=== PATIENT | male | born 1985 | race Caucasian/White ===

== ENCOUNTER 2017-08-24 09:38 | Emergency (ER) | payer SELFPAY ==
[2017-08-24] MEDS ORDERED: LIDOCAINE 1% 20 ML MDV ONE (12:12)
--- NOTE | 2017-08-24 12:51 | EDPHYS ---
Physician Documentation [facility] Name: Dima Moses Age: 31 yrs Sex: Male : 1985 Arrival Date: 08/24/2017 Time: 09:41 Bed 25 Private MD: None, None ED Physician Arun Lua HPI: 08/24 12:58 This 31 yrs old Male presents to ER via Ambulatory with complaints of jr8 Laceration To Hand. 12:58 The patient has a laceration related to: falling occurred outdoors. Onset: The jr8 symptoms/episode began/occurred acutely, yesterday. Associated signs and symptoms: The patient has no apparent associated signs or symptoms. The patient has not experienced similar symptoms in the past. The patient has not recently seen a physician. [place]. Laceration to hand. Came in today for examination . Historical: - Allergies: 10:03 No Known Allergies; aj - Home Meds: 10:03 Nexium Oral [Active]; aj - PMHx: 10:03 None; aj - PSHx: 10:03 None; aj - Immunization history:: Last tetanus immunization: up to date. - Social history:: Smoking status: Patient/guardian denies using tobacco. - Ebola Screening: : No symptoms or risks identified at this time. ROS: 17:28 Eyes: Negative for injury, pain, redness, and discharge, ENT: Negative for injury, jr8 pain, and discharge, Neck: Negative for injury, pain, and swelling, Cardiovascular: Negative for chest pain, palpitations, and edema, Respiratory: Negative for shortness of breath, cough, wheezing, and pleuritic chest pain, Abdomen/GI: Negative for abdominal pain, nausea, vomiting, diarrhea, and constipation, Back: Negative for injury and pain, Neuro: Negative for headache, weakness, numbness, tingling, and seizure. 17:28 MS/extremity: Positive for laceration, of the right hand. Exam: 17:28 Cardiovascular: Regular rate and rhythm with a normal S1 and S2. No gallops, murmurs, jr8 or rubs. Normal PMI, no JVD. No pulse deficits. Respiratory: Lungs have equal breath sounds bilaterally, clear to auscultation and percussion. No rales, rhonchi or wheezes noted. No increased work of breathing, no retractions or nasal flaring. MS/ Extremity: Pulses equal, no cyanosis. Neurovascular intact. Full, normal range of motion. Neuro: Awake and alert, GCS 15, oriented to person, place, time, and situation. Cranial nerves II-XII grossly intact. Motor strength 5/5 in all extremities. Sensory grossly intact. Cerebellar exam normal. Normal gait. 17:28 Skin: injury, laceration(s), the wound is approximately 8 cm(s), with a depth of .3 cm(s), of the right hand, that can be described as no foreign body, irregular, with mild bleeding. Vital Signs: 10:03 BP 140 / 95; Pulse 99; Resp 16; Temp 98.5; Pulse Ox 97% on R/A; Weight 84.37 kg; Height aj 5 ft. 11 in. (180.34 cm); 10:03 Body Mass Index 25.94 (84.37 kg, 180.34 cm) aj Laceration: 12:48 Wound Repair of 8cm ( 3.1in ) subcutaneous laceration to heel of right hand. jr8 Irregularly shaped.. Minimal bleeding noted.. Distal neuro/vascular/tendon intact. Anesthesia: Local anesthetic administered with 8 mls of 1% lidocaine. Wound prep: Extensive cleansing with betadine, Wound irrigation with saline, Wound explored extensively. Skin closed with 12 3-0 Prolene using interrupted sutures and sterile technique. Patient tolerated well. MDM: 11:38 Patient medically screened. jr8 12:48 Data reviewed: vital signs, nurses notes, and as a result, I will discharge patient. jr8 Data interpreted: Pulse oximetry: on room air is 97 %. Interpretation: normal. Counseling: I had a detailed discussion with the patient and/or guardian regarding: the historical points, exam findings, and any diagnostic results supporting the discharge/admit diagnosis, the need for outpatient follow up, a family practitioner, to return to the emergency department if symptoms worsen or persist or if there are any questions or concerns that arise at home. 08/24 11:54 Order name: Dressing - Wound; Complete Time: 13:08 jr8 08/24 11:54 Order name: Gloves, Sterile; Complete Time: 12:28 jr8 08/24 11:54 Order name: Setup Suture Tray; Complete Time: 12:28 jr8 Administered Medications: 12:40 Drug: Lidocaine (1 %) 1 vials {Note: administered by PA to right hand for laceration aa5 repair .} Volume: 20 ml; Route: Infiltration; Disposition: 16:52 Co-signature as Attending Physician, Arun Lua MD I agree with the assessment and kdr plan of care. Disposition: 08/24/17 12:50 Discharged to Home. Impression: Laceration without foreign body of right hand. - Condition is Stable. - Discharge Instructions: Laceration Care, Adult. - Prescriptions for Cipro 500 mg Oral Tablet - take 1 tablet by ORAL route every 12 hours for 10 days; 20 tablet. - Work release form, Medication Reconciliation Form, Thank You Letter, Antibiotic Education, Prescription Opioid Use form. - Follow up: Private Physician; When: 7 - 10 days; Reason: Wound Recheck, Recheck today's complaints, Continuance of care, Staple/Suture removal, Re-evaluation by your physician. - Problem is new. - Symptoms have improved. Signatures: Irma Hernandez RN RN aj Rittger, Kevin, MD MD [facility] Dina Dodge RN RN aa5 Kit Mccormack PA PA jr8 Corrections: (The following items were deleted from the chart) 13:16 12:50 08/24/2017 12:50 Discharged to Home. Impression: Laceration without foreign body aa5 of right hand. Condition is Stable. Forms are Medication Reconciliation Form, Thank You Letter, Antibiotic Education, Prescription Opioid Use. Follow up: Private Physician; When: 7 - 10 days; Reason: Wound Recheck, Recheck today's complaints, Continuance of care, Staple/Suture removal, Re-evaluation by your physician. Problem is new. Symptoms have improved. jr8
--- NOTE | 2017-08-24 12:51 | ER ---
Nurse's Notes [facility] Name: Dima Moses Age: 31 yrs Sex: Male : 1985 Arrival Date: 08/24/2017 Time: 09:41 Bed 25 Private MD: None, None Diagnosis: Laceration without foreign body of right hand Presentation: 08/24 10:01 Presenting complaint: Patient states: Laceration to palm of right hand last night while aj fishing. Patient reports cutting himself on rocks. Transition of care: patient was not received from another setting of care. Complicating Factors: There are no complicating factors for this patient. Onset of symptoms was August 24, 2017 at 01:00. Care prior to arrival: None. 10:01 Method Of Arrival: Ambulatory aj 10:01 Acuity: CAE 3 aj 12:00 Risk Assessment: Do you want to hurt yourself or someone else? Patient reports no aa5 desire to harm self or others. Initial Sepsis Screen: Does the patient meet any 2 criteria? No. Patient's initial sepsis screen is negative. Does the patient have a suspected source of infection? No. Patient's initial sepsis screen is negative. Triage Assessment: 10:03 General: Appears in no apparent distress. comfortable, Behavior is calm, cooperative, aj appropriate for age, Smells of alcohol. Neuro: Level of Consciousness is awake, alert, obeys commands, Oriented to person, place, time, situation, Appropriate for age. Respiratory: Airway is patent Respiratory effort is even, unlabored, Respiratory pattern is regular, symmetrical. Derm: Skin is intact, is healthy with good turgor, Skin is pink, warm \T\ dry. normal. Injury Description: Laceration sustained to heel of right hand, palm of right hand and outer aspect of right palm is 2.6 to 7.5 cm long, not bleeding. Historical: - Allergies: 10:03 No Known Allergies; aj - Home Meds: 10:03 Nexium Oral [Active]; aj - PMHx: 10:03 None; aj - PSHx: 10:03 None; aj - Immunization history:: Last tetanus immunization: up to date. - Social history:: Smoking status: Patient/guardian denies using tobacco. - Ebola Screening: : No symptoms or risks identified at this time. Screenin:00 Abuse screen: Denies threats or abuse. Nutritional screening: No deficits noted. aa5 Tuberculosis screening: No symptoms or risk factors identified. Fall Risk None identified. Assessment: 12:00 General: Appears comfortable, Behavior is calm, cooperative. Pain: Complains of pain in aa5 right hand Pain radiates to right wrist Pain currently is 6 out of 10 on a pain scale. Quality of pain is described as throbbing, Pain began last night Is continuous, Aggravated by increased activity. Neuro: Level of Consciousness is awake, alert, obeys commands, Oriented to person, place, time, situation. 12:00 Cardiovascular: Heart tones S1 S2 present Pulses are 3+ in right radial artery Rhythm aa5 is regular. Respiratory: Airway is patent Respiratory effort is even, unlabored, Respiratory pattern is regular, symmetrical. GI: No signs and/or symptoms were reported involving the gastrointestinal system. : No signs and/or symptoms were reported regarding the genitourinary system. EENT: No signs and/or symptoms were reported regarding the EENT system. Derm: Skin is pink, warm \T\ dry. Musculoskeletal: Range of motion: intact in all extremities. Injury Description: Laceration sustained to right hand is approximately 2 in long, no active bleeding noted. Dry blood noted. 12:29 Reassessment: Laceration cleaned with Hibiclens and saline per PA for suture repair. . aa5 13:15 Reassessment: Patient is alert, oriented x 3, equal unlabored respirations, skin aa5 warm/dry/pink. Vital Signs: 10:03 BP 140 / 95; Pulse 99; Resp 16; Temp 98.5; Pulse Ox 97% on R/A; Weight 84.37 kg; Height aj 5 ft. 11 in. (180.34 cm); 10:03 Body Mass Index 25.94 (84.37 kg, 180.34 cm) aj ED Course: 09:41 Patient arrived in ED. mr 09:41 None, None is Private Physician. mr 10:03 Triage completed. aj 10:03 Arm band placed on left wrist. Patient placed in waiting room, Patient notified of wait aj time. 11:38 Kit Mccormack PA is PHCP. jr8 11:49 iDna Dodge, RN is Primary Nurse. aa5 12:00 Patient placed in an exam room, on a stretcher. aa5 12:00 Patient has correct armband on for positive identification. Bed in low position. Call aaCosta light in reach. Side rails up X 1. 12:50 Arun Lua MD is Attending Physician. jr8 12:50 Assist provider with laceration repair on right hand using sutures. Performed by Kit Mccormack PA Dressed with Adaptic, Kerlix, Neosporin, Patient tolerated well. 13:15 Patient did not have IV access during this emergency room visit. aaCosta Administered Medications: 12:40 Drug: Lidocaine (1 %) 1 vials {Note: administered by PA to right hand for laceration aa5 repair .} Volume: 20 ml; Route: Infiltration; Outcome: 12:50 Discharge ordered by . joon 13:15 Discharged to home ambulatory. aaCosta 13:15 Condition: good 13:15 Discharge instructions given to patient, Instructed on discharge instructions, follow up and referral plans. medication usage, wound care, Demonstrated understanding of instructions, follow-up care, medications, wound care, Prescriptions given X 1. 13:16 Patient left the ED. kirill Signatures: Irma Hernandez RN Gladis Verma Audri, RN RN Kit Castrejon PA PA [email or web address] Corrections: (The following items were deleted from the chart) 10:05 10:03 Arm band placed on left wrist. Patient placed in an exam room, will [facility]
== END 2017-08-24 13:16 | disposition home or self-care (01) ==
LOC: ER 09:38
PROC: 0JQJ0ZZ Repair Right Hand Subcutaneous Tissue and Fascia, Open Approach (ICD-10-PCS; principal; 2017-08-24)
DX: S61.411A Laceration without foreign body of right hand, initial encounter (principal); W26.8XXA Contact with other sharp object(s), not elsewhere classified, initial encounter; Y93.89 Activity, other specified; Y92.832 Beach as the place of occurrence of the external cause; Y99.8 Other external cause status
CPT/HCPCS: 99283